=== PATIENT | female | born 1985 | race Caucasian/White ===

== ENCOUNTER 2017-03-05 12:56 | Emergency (ER) | payer SELFPAY ==
[~2017-03-05] VITALS: Ht 165.1 cm; Wt 69.0 kg
[~2017-03-05 12:56] MED LIST: FAMO-18 PO; HYDR-3498 PO
[2017-03-05 13:06] VITALS: Ht 165.1 cm; Wt 69.0 kg
== END 2017-03-05 20:39 | disposition left against medical advice (07) ==
LOC: FTE 12:56
DX: Z53.21 Procedure and treatment not carried out due to patient leaving prior to being seen by health care provider (principal)